=== PATIENT | female | born 1965 | race Caucasian/White ===

== ENCOUNTER → 2017-12-31 | Outpatient (CLI) | payer MEDICARE, MEDICAID ==
[~2017-12-31] MED LIST: ADIPEX-P37.5 MG PO; ATIVAN 1MG T1 MG/TAB PO; CLEOCIN HC150 MG/CAP PO; CO Q-1050 MG PO; EFFEXOR XR75 MG/CAP PO; FLEXERIL 1010 MG/TAB PO; K-DUR 10 MEQ T10 MEQ PO; L-LYSINE1000 MG PO; LASIX 80MG TABL80 MG PO; LYRICA200 MG PO; MOTRIN 200200 MG/TAB PO; MULTIPLE VITAMI1 CAP PO; NIZORAL SHAMPO120 M1 TP; NORCO 325 MG-51 TAB PO; NORCO 325 MG-7.1 TAB PO; RESTASIS0.05% OP; SYNTHROID0.125 MG/T PO; TOPAMAX 100MG100 M1 PO; ZANAFLEX CAPSULE4 MG PO; [UNRECOGNIZED DRUG - OTHER] OP
== END ==
LOC: COL.RAD 07:29
DX: R10.9 Unspecified abdominal pain (principal); R11.2 Nausea with vomiting, unspecified

== ENCOUNTER → 2018-01-12 | Outpatient (CLI) | payer MEDICARE, MEDICAID | LOC: COL.RAD 09:56 | DX: D64.9 Anemia, unspecified (principal); K76.0 Fatty (change of) liver, not elsewhere classified | CPT/HCPCS: A9537 ==

== ENCOUNTER 2018-04-10 10:00 | Day surgery (SDC) | payer MEDICARE, MEDICAID ==
[2018-04-10] VITALS (9 sets, daily range): BP systolic 114–139; BP diastolic 68–94; PULSE 68–100; TEMP 97.6
[~2018-04-10] VITALS: Ht 160 cm; Wt 101.0 kg
[2018-04-10 10:46] LABS: HEMOGLOBIN 13.7 g/dl (12.5-16.0); MEAN CELL VOLUME 96 fl (80.0-100.0); MEAN CORPUSCULAR HEMOGLOBIN 32 pg (27.0-31.0); MEAN CORPUSCULAR HGB CONC 33 g/dl (33.0-37.0); MEAN PLATELET VOLUME 9.4 fl (7.4-10.4); PLATELET COUNT 282 K/mm3 (130-400); RED BLOOD COUNT 4.27 M/mm3 (4.10-5.30); REDCELL DISTRIBUTION WIDTH-CV 13.2 % (11.5-14.5)
[2018-04-10 10:51] LABS: PROTHROMBIN TIME 11.7 SECONDS (9.7-12.8)
[2018-04-10] MEDS ORDERED: EFFEXOR-XR150 MG PO (10:51)
[2018-04-10] MEDS ORDERED: IRON TABLETS325 MG PO (10:53)
[2018-04-10] MEDS ORDERED: MITIGARE0.6 MG PO (10:54)
[2018-04-10] MEDS ORDERED: FOLIC ACID0.4 MG PO (10:55)
[2018-04-10 10:56] LABS: CALCIUM 8.9 mg/dL (8.4-10.2); CREATININE, serum 0.82 mg/dL (0.52-1.25); POTASSIUM 3.7 mmol/L (3.4-5.0)
[2018-04-10] MEDS ORDERED: MELATONIN5 M1 SL (10:56)
[2018-04-10] MEDS ORDERED: PROBIOTIC FORMU1 CAP PO (10:57)
[2018-04-10] MEDS ORDERED: PROTONIX 40MG T40 MG PO (10:57)
[2018-04-10] MEDS ORDERED: B-12 500 MCG PO (10:58)
[2018-04-10] MEDS ORDERED: VITAMIN B COMPL1 SGL PO (10:58)
[2018-04-10] MEDS ORDERED: VITAMIN C500 MG PO (10:59)
[2018-04-10] MEDS ORDERED: NATURAL E400 IU PO (11:00)
[2018-04-10] MEDS ORDERED: PHARMASSURE ZIN50 MG PO (11:00)
[2018-04-10] MEDS ORDERED: SENOKOT S 50 MG1 TAB PO (11:01)
[2018-04-10] MEDS ORDERED: CALCIUM CARBON650 M2 PO (11:04)
[2018-04-10] MEDS ORDERED: VITAMIN D31000 I1 PO (11:05)
[2018-04-10] MEDS ORDERED: FEMARA PO (11:06)
[2018-04-10] MEDS ORDERED: LOPRESSOR 550 MG/TAB PO (11:06)
== END 2018-04-10 15:50 | disposition home or self-care (01) ==
LOC: COL.CAR 10:00
PROVIDERS: Internal Medicine Interventional Cardiology
DX: I20.8 Other forms of angina pectoris (principal); I87.2 Venous insufficiency (chronic) (peripheral); C50.919 Malignant neoplasm of unspecified site of unspecified female breast; Z79.891 Long term (current) use of opiate analgesic; Z88.8 Allergy status to other drugs, medicaments and biological substances; Z88.5 Allergy status to narcotic agent; Z88.6 Allergy status to analgesic agent
CPT/HCPCS: C1769; C1887; C1894; J1644; J2250; J3010; Q9967